=== PATIENT | female | born 1935 | race African-American/Black ===

== ENCOUNTER 2021-08-27 07:58 | Inpatient (IN) | payer OTHER ==
[~2021-08-27] VITALS: Ht 170.2 cm; Wt 65.2 kg
[~2021-08-27 07:58] MED LIST: ALLO100T PO; CALC667C PO; CARV12.544 PO; CLOP75TA70 PO; INSLANTI SC; OME20T PO; SUCR1TAB PO; TEMA30CA PO
[2021-08-27] MEDS ORDERED: FUROSEMIDE 40 MG/4 ML VIAL IV ONE (08:30)
[2021-08-27] MEDS: cloNIDine HCL 0.1 MG TAB PO ONE ×2 (08:57→08:58)
[2021-08-27 09:41] LABS: Basophils # (auto) 0.1 10 ^3/uL (0-0.2); Basophils % (auto) 1.4 % (0.0-2.0); Eosinophils # (auto) 0.1 10 ^3/uL (0-0.8); Eosinophils % (auto) 1.7 % (0.0-7.0); Hematocrit 34.5 % (36.0-46.0); Hemoglobin 11.3 g/dL (12.2-16.2); Lymphocytes # (auto) 1.7 10 ^3/uL (0.4-5.4); Lymphocytes % (auto) 22.8 % (10.0-50.0); Mean Corpuscular Hemoglobin 31.2 pg (28.0-32.0); Mean Corpuscular Hgb Conc. 32.8 g/dL (32.0-36.0); Mean Corpuscular Volume 95.2 fL (80.0-100.0); Monocytes # (auto) 0.7 10 ^3/uL (0-1.3); Monocytes % (auto) 9.6 % (0.0-12.0); Neutrophils # (auto) 4.9 10 ^3/uL (1.6-8.6); Neutrophils % (auto) 64.5 % (37.0-80.0); Red Blood Cells 3.63 10^6/uL (4.0-5.20); Red Cell Distribution Width 14.6 % (11.8-14.3); White Blood Cell 7.6 10^3/uL (4.4-10.8)
[2021-08-27] MEDS: SODIUM CHL 0.9% 1000 ML BAG XX ONE (10:30)
[2021-08-27 11:59] LABS: Alanine Aminotransferase 10 U/L (13-56); Alkaline Phosphatase 161 U/L (45-117); Anion Gap 14 (5-15); Aspartate Aminotransferase 20 U/L (15-37); BUN/Creatinine Ratio 3.1; Blood Urea Nitrogen 32 mg/dL (7-18); Carbon Dioxide 21 mmol/L (21-32); Chloride 99 mmol/L (98-107); GFR African American 5 mL/min; GFR Non-African American 4 mL/min; Glucose 152 mg/dL (74-106); Potassium 4.8 mmol/L (3.5-5.1); Sodium 134 mmol/L (136-145)
[2021-08-27 12:00] LABS: Albumin 3.2 g/dL (3.4-5.0); Bilirubin, Total 0.7 mg/dL (0.2-1.0); Calcium 8.4 mg/dL (8.5-10.1); Total Protein 6.9 g/dL (6.4-8.2)
[2021-08-27] MEDS ORDERED: BUMETANIDE 2.5mg/10ml (0.25 mg/ml) INJ IV ONE (13:00)
[2021-08-27] MEDS ORDERED: NITROGLYCERIN 0.4 MG SL TAB SL PRN (13:00)
[2021-08-27] MEDS ORDERED: MORPHINE SULFATE INJECTION 2 MG/ML SYRG IV PRN (13:00)
[2021-08-27] MEDS ORDERED: ACETAMINOPHEN 325 MG TAB PO PRN (13:45)
[2021-08-27] MEDS ORDERED: LORazepam 0.5 MG TAB PO PRN (13:45)
[2021-08-27] MEDS ORDERED: HYDROcodone-ACET 5/325MG TAB PO PRN (13:45)
[2021-08-27] MEDS ORDERED: FERROUS SULFATE 325mg EC TAB PO ONE (13:45)
[2021-08-27] MEDS ORDERED: DOCUSATE SOD 100 MG CAP PO PRN (13:45)
[2021-08-27] MEDS ORDERED: hydrALAZINE HCL 20 MG/ML VL IV PRN (13:45)
[2021-08-27] MEDS ORDERED: IPRATROPIUM BROM 0.5 MG/2.5ML INH SOL NEB ONE (13:45)
[2021-08-27] MEDS ORDERED: MONTELUKAST SODIUM 10 MG TAB PO ONE (13:45)
[2021-08-27] MEDS ORDERED: LACTULOSE 20Gm/30ML SOLN PO PRN (13:45)
[2021-08-27] MEDS ORDERED: HYDROcodone-ACET 5/325MG TAB PO ONE (13:45)
[2021-08-27] MEDS ORDERED: PANTOPRAZOLE 40 MG/10 ML VIAL INJ IV ONE (13:45)
[2021-08-27] MEDS ORDERED: B-COMPLEX W/ C & FOLIC ACID(NEPHROVITE TAB) PO ONE (13:45)
[2021-08-27] MEDS ORDERED: DEXTROSE (50%) 50ML SYRG IV PRN ×2 (14:00→17:15)
[2021-08-27] MEDS ORDERED: NIFEdipine ER 30 MG TAB PO ONE (14:00)
[2021-08-27] MEDS ORDERED: IPRATROPIUM BROM 0.5 MG/2.5ML INH SOL NEB SCH (14:00)
[2021-08-27] MEDS ORDERED: ACETYLCYSTEINE 10 %(100MG/ML) SOL 4ML NEB SCH (14:00)
[2021-08-27] MEDS ORDERED: CEFEPIME 1GM/ 50ML 50 ML IV ONE (14:00)
[2021-08-27 16:15] VITALS: BP 160/72
[2021-08-27 16:18] LABS: Magnesium 2.1 mg/dL (1.6-2.6); Phosphorus 4.1 mg/dL (2.5-4.90)
[2021-08-27 17:00] VITALS: BP 160/72
[2021-08-27] MEDS: ACCU-CHEK COMFORT CURVE STRIP VI SCH ×2 (17:00→21:44)
[2021-08-27 17:36] LABS: INR 1.05 (0.9-1.15); Partial Thromboplastin Time 27.3 sec (23.6-33.0)
[2021-08-27] MEDS: FERROUS SULFATE 325mg EC TAB PO SCH (17:46)
[2021-08-27] MEDS: CALCIUM ACETATE 667 MG CAP PO SCH (17:46)
[2021-08-27] MEDS: InsuLIN REG 1unit/0.01ml Soln (100units/ml) SC SCH ×2 (17:50→21:44)
[2021-08-27] MEDS ORDERED: FERROUS SULFATE 325mg EC TAB PO SCH (18:00)
[2021-08-27] MEDS: FUROSEMIDE 20 MG/2 ML VIAL IV SCH (18:00)
[2021-08-27] MEDS ORDERED: FUROSEMIDE 40 MG/4 ML VIAL IV SCH (18:00)
[2021-08-27] MEDS ORDERED: IPRATROPIUM BROM 0.5 MG/2.5ML INH SOL NEB PRN (18:00)
[2021-08-27] MEDS ORDERED: BUMETANIDE 2.5mg/10ml (0.25 mg/ml) INJ IV SCH (18:00)
[2021-08-27] MEDS: CARVEDILOL 3.125 MG TAB PO SCH (21:43)
[2021-08-27] MEDS: ATORVASTATIN 20 MG TAB PO SCH (21:44)
[2021-08-27] MEDS: MONTELUKAST SODIUM 10 MG TAB PO SCH (21:44)
[2021-08-27] MEDS: GABAPENTIN 100 MG CAP PO SCH (21:44)
[2021-08-27 22:00] VITALS: BP 137/68
[2021-08-27] MEDS ORDERED: InsuLIN REG 1unit/0.01ml Soln (100units/ml) SC SCH (22:00)
[2021-08-27] MEDS ORDERED: ATORVASTATIN 20 MG TAB PO SCH (22:00)
[2021-08-27] MEDS ORDERED: ACCU-CHEK COMFORT CURVE STRIP VI SCH (22:00)
[2021-08-28 03:20] VITALS: BP 137/68
[2021-08-28 05:00] VITALS: BP 117/45
[2021-08-28] MEDS: GABAPENTIN 100 MG CAP PO SCH ×3 (06:17→23:23)
[2021-08-28] MEDS: FUROSEMIDE 20 MG/2 ML VIAL IV SCH ×2 (06:17→18:36)
[2021-08-28] MEDS: ACCU-CHEK COMFORT CURVE STRIP VI SCH ×4 (06:27→22:11)
[2021-08-28] MEDS: InsuLIN REG 1unit/0.01ml Soln (100units/ml) SC SCH ×4 (06:27→22:00)
[2021-08-28 06:45] LABS: INR 1.1 (0.9-1.15); Partial Thromboplastin Time 29.3 sec (23.6-33.0)
[2021-08-28] MEDS ORDERED: InsuLIN REG 1unit/0.01ml Soln (100units/ml) SC SCH (07:00)
[2021-08-28 07:28] LABS: Uric Acid 4.3 mg/dL (2.6-6.0)
[2021-08-28 07:31] LABS: Phosphorus 3.6 mg/dL (2.5-4.90)
[2021-08-28 07:39] VITALS: BP 122/62
[2021-08-28 07:42] LABS: Thyroid Stimulating Hormone 1.79 uIU/mL (0.358-3.74)
[2021-08-28] MEDS: CALCIUM ACETATE 667 MG CAP PO SCH ×3 (07:56→18:35)
[2021-08-28] MEDS: FERROUS SULFATE 325mg EC TAB PO SCH ×3 (07:56→18:35)
[2021-08-28] MEDS: CLOPIDOGREL BISULFATE 75 MG TAB PO SCH (08:01)
[2021-08-28] MEDS: ALLOPURINOL 100 MG TAB PO SCH (08:01)
[2021-08-28] MEDS: CARVEDILOL 3.125 MG TAB PO SCH ×2 (08:01→23:26)
[2021-08-28] MEDS: B-COMPLEX W/ C & FOLIC ACID(NEPHROVITE TAB) PO SCH (08:02)
[2021-08-28] MEDS: CALCITRIOL 0.25 MCG CAP PO SCH (08:02)
[2021-08-28] MEDS: ENOXAPARIN SOD 30 MG/0.3 ML SYRINGE SC SCH (08:03)
[2021-08-28] MEDS: NIFEdipine ER 30 MG TAB PO SCH (09:37)
[2021-08-28] MEDS: PANTOPRAZOLE 40 MG/10 ML VIAL INJ IV SCH (09:38)
[2021-08-28] MEDS: CEFEPIME 1GM/ 50ML 50 ML IV SCH (10:00)
[2021-08-28] MEDS ORDERED: CHOLECALCIFEROL (VITD3) 2,000 UNIT CAP/TAB PO SCH (10:00)
[2021-08-28 11:49] VITALS: BP 115/51
[2021-08-28 17:00] VITALS: BP 119/61
[2021-08-28 22:13] VITALS: BP 119/53
[2021-08-28] MEDS: MONTELUKAST SODIUM 10 MG TAB PO SCH (23:22)
[2021-08-28] MEDS: ATORVASTATIN 20 MG TAB PO SCH (23:23)
[2021-08-29 05:00] VITALS: BP 136/73
[2021-08-29] MEDS: GABAPENTIN 100 MG CAP PO SCH ×2 (05:43→13:24)
[2021-08-29] MEDS: FUROSEMIDE 20 MG/2 ML VIAL IV SCH ×2 (05:43→17:52)
[2021-08-29] MEDS: ACCU-CHEK COMFORT CURVE STRIP VI SCH ×3 (06:31→17:51)
[2021-08-29] MEDS: InsuLIN REG 1unit/0.01ml Soln (100units/ml) SC SCH ×3 (06:32→17:52)
[2021-08-29] MEDS ORDERED: SODIUM CHL 0.9% 1000 ML BAG XX ONE (07:00)
[2021-08-29 08:06] LABS: Calcium 8.7 mg/dL (8.5-10.1); Potassium 4.4 mmol/L (3.5-5.1)
[2021-08-29 09:00] VITALS: BP 118/53
[2021-08-29] MEDS: CALCIUM ACETATE 667 MG CAP PO SCH ×3 (09:17→17:51)
[2021-08-29] MEDS: FERROUS SULFATE 325mg EC TAB PO SCH ×3 (09:17→17:51)
[2021-08-29] MEDS: CEFEPIME 1GM/ 50ML 50 ML IV SCH (09:17)
[2021-08-29] MEDS: PANTOPRAZOLE 40 MG/10 ML VIAL INJ IV SCH (09:17)
[2021-08-29] MEDS: B-COMPLEX W/ C & FOLIC ACID(NEPHROVITE TAB) PO SCH (09:18)
[2021-08-29] MEDS: CLOPIDOGREL BISULFATE 75 MG TAB PO SCH (09:18)
[2021-08-29] MEDS: CARVEDILOL 3.125 MG TAB PO SCH (09:18)
[2021-08-29] MEDS: ENOXAPARIN SOD 30 MG/0.3 ML SYRINGE SC SCH (09:19)
[2021-08-29] MEDS: ALLOPURINOL 100 MG TAB PO SCH (09:19)
[2021-08-29] MEDS: NIFEdipine ER 30 MG TAB PO SCH (09:19)
[2021-08-29] MEDS: CALCITRIOL 0.25 MCG CAP PO SCH (09:19)
[2021-08-29 13:00] VITALS: BP 140/68
[2021-08-30] MEDS ORDERED: ASPirin 81 mg TAB PO SCH (10:00)
== END 2021-08-29 19:08 | disposition home or self-care (01) | DRG 280 ==
LOC: ER 07:58 → TELE 12:51 → TELE-CENTR 15:57
PROVIDERS: ADMIT Hospitalist; ATTEND Internal Medicine Geriatric Medicine
PROC: 5A1D70Z Performance of Urinary Filtration, Intermittent, Less than 6 Hours Per Day (ICD-10-PCS; principal; 2021-08-27)
PROC: 5A1D70Z Performance of Urinary Filtration, Intermittent, Less than 6 Hours Per Day (ICD-10-PCS; 2021-08-29)
DX: I13.2 Hypertensive heart and chronic kidney disease with heart failure and with stage 5 chronic kidney disease, or end stage renal disease (principal); I21.A1 Myocardial infarction type 2; N18.6 End stage renal disease; I50.23 Acute on chronic systolic (congestive) heart failure; I42.9 Cardiomyopathy, unspecified; E11.22 Type 2 diabetes mellitus with diabetic chronic kidney disease; E78.5 Hyperlipidemia, unspecified; E88.09 Other disorders of plasma-protein metabolism, not elsewhere classified; D63.1 Anemia in chronic kidney disease; Z20.822 Contact with and (suspected) exposure to COVID-19; I25.10 Atherosclerotic heart disease of native coronary artery without angina pectoris; K29.70 Gastritis, unspecified, without bleeding; M1A.9XX0 Chronic gout, unspecified, without tophus (tophi); Z98.61 Coronary angioplasty status; Z79.02 Long term (current) use of antithrombotics/antiplatelets; Z99.2 Dependence on renal dialysis; Z79.899 Other long term (current) drug therapy
CPT/HCPCS: 36415; 71045; 80048; 80053; 80061; 82728; 82962; 83036; 83605; 83615; 83690; 83735; 83970; 84100; 84443; 84484; 84550; 85025; 85379; 85610; 85652; 85730; 87040; 90935; 93005; 93306; 93970; 96374; 99291; C9113; G0378; J1642; J1815

== ENCOUNTER 2021-10-20 15:47 | Inpatient (IN) | payer OTHER ==
[~2021-10-20] VITALS: Ht 162.6 cm; Wt 56.4 kg
[2021-10-20] MEDS ORDERED: SODIUM CHLORIDE 0.9% 1,000 ML IV ONE (16:45)
[2021-10-20 19:06] LABS: Basophils # (auto) 0.1 10 ^3/uL (0-0.2); Basophils % (auto) 0.8 % (0.0-2.0); Eosinophils # (auto) 0 10 ^3/uL (0-0.8); Eosinophils % (auto) 0.2 % (0.0-7.0); Hematocrit 34.7 % (36.0-46.0); Hemoglobin 11.7 g/dL (12.2-16.2); Lymphocytes # (auto) 1.9 10 ^3/uL (0.4-5.4); Lymphocytes % (auto) 24.7 % (10.0-50.0); Mean Corpuscular Hemoglobin 31.6 pg (28.0-32.0); Mean Corpuscular Hgb Conc. 33.7 g/dL (32.0-36.0); Mean Corpuscular Volume 93.7 fL (80.0-100.0); Monocytes # (auto) 0.6 10 ^3/uL (0-1.3); Monocytes % (auto) 8.1 % (0.0-12.0); Neutrophils # (auto) 5.1 10 ^3/uL (1.6-8.6); Neutrophils % (auto) 66.2 % (37.0-80.0); Nucleated Red Blood Cells % 0.1 %; Red Blood Cells 3.71 10^6/uL (4.0-5.20); Red Cell Distribution Width 14.7 % (11.8-14.3); White Blood Cell 7.7 10^3/uL (4.4-10.8)
[2021-10-20 19:17] LABS: INR 1.01 (0.9-1.15); Partial Thromboplastin Time 28.7 sec (23.6-33.0)
[2021-10-20 19:26] LABS: Albumin 2.8 g/dL (3.4-5.0); Calcium 8.9 mg/dL (8.5-10.1)
[2021-10-20 19:29] LABS: BUN/Creatinine Ratio 3.4
[2021-10-20] MEDS ORDERED: ENOXAPARIN SOD 60 MG/0.6 ML SYRINGE SC ONE (19:30)
[2021-10-20] MEDS ORDERED: ASPirin-EC 325mg tab PO ONE (19:30)
[2021-10-20 19:38] LABS: Potassium 5.7 mmol/L (3.5-5.1)
[2021-10-20 19:42] LABS: Bilirubin, Total 0.4 mg/dL (0.2-1.0); Total Protein 7.3 g/dL (6.4-8.2)
[2021-10-20] MEDS ORDERED: CALCIUM GLUC 1,000mg/50ml-NS 50 ML IV ONE (20:15)
[2021-10-20] MEDS ORDERED: DEXTROSE (50%) 50ML SYRG IV ONE (20:15)
[2021-10-20] MEDS ORDERED: SODIUM BICARBONATE 8.4 % INJ 50ML VIAL IV ONE (20:15)
[2021-10-20] MEDS ORDERED: InsuLIN REG 1unit/0.01ml Soln (100units/ml) IV ONE (20:15)
[2021-10-20] MEDS ORDERED: SODIUM ZIRCONIUM CYCL 10 GM PAK PO ONE (21:00)
[2021-10-20] MEDS ORDERED: ONDANSETRON HCL 4 MG/2 ML VIAL IV PRN (21:45)
[2021-10-20] MEDS ORDERED: DOCUSATE SOD 100 MG CAP PO PRN (21:45)
[2021-10-20] MEDS ORDERED: DEXTROSE (50%) 50ML SYRG IV PRN (21:45)
[2021-10-20] MEDS ORDERED: HYDROcodone-ACET 5/325MG TAB PO PRN (21:45)
[2021-10-20] MEDS: HEPARIN SODIUM (PORCINE) 5000 UNITS/ML 1ML VIAL SC SCH (22:00)
[2021-10-20] MEDS: SODIUM CHLOR 0.9% PF (SALINE LOCK) 10ML VIAL/SYR IV SCH (22:00)
[2021-10-20] MEDS: CARVEDILOL 3.125 MG TAB PO SCH (22:00)
[2021-10-20] MEDS: InsuLIN REG 1unit/0.01ml Soln (100units/ml) SC SCH (22:00)
[2021-10-20] MEDS: ACCU-CHEK COMFORT CURVE STRIP VI SCH (22:09)
[2021-10-20] MEDS ORDERED: NITROGLYCERIN 0.4 MG SL TAB SL PRN (22:15)
[2021-10-20] MEDS ORDERED: MORPHINE SULFATE INJ 2 MG/ml SYRG IV PRN (22:15)
[2021-10-21] VITALS (7 sets, daily range): BP systolic 106–139; BP diastolic 50–85
[2021-10-21] MEDS: FAMOTIDINE (10MG/ML) 2ML VL IV SCH ×2 (01:16→23:12)
[2021-10-21] MEDS: SODIUM CHLOR 0.9% PF (SALINE LOCK) 10ML VIAL/SYR IV SCH ×3 (06:17→22:42)
[2021-10-21] MEDS: InsuLIN REG 1unit/0.01ml Soln (100units/ml) SC SCH ×4 (06:17→22:00)
[2021-10-21] MEDS: ACCU-CHEK COMFORT CURVE STRIP VI SCH ×4 (06:17→22:43)
[2021-10-21] MEDS: SEVELAMER 800 MG TAB PO SCH ×3 (08:00→18:00)
[2021-10-21] MEDS: CARVEDILOL 3.125 MG TAB PO SCH ×2 (11:46→11:56)
[2021-10-21] MEDS: B-COMPLEX W/ C & FOLIC ACID(NEPHROVITE TAB) PO SCH (11:46)
[2021-10-21] MEDS: HEPARIN SODIUM (PORCINE) 5000 UNITS/ML 1ML VIAL SC SCH ×2 (11:47→22:48)
[2021-10-21 13:57] LABS: Basophils # (auto) 0.1 10 ^3/uL (0-0.2); Basophils % (auto) 1.5 % (0.0-2.0); Eosinophils # (auto) 0.1 10 ^3/uL (0-0.8); Eosinophils % (auto) 1.1 % (0.0-7.0); Hemoglobin 12.4 g/dL (12.2-16.2); Lymphocytes # (auto) 2.5 10 ^3/uL (0.4-5.4); Lymphocytes % (auto) 26.4 % (10.0-50.0); Mean Corpuscular Hemoglobin 31.1 pg (28.0-32.0); Mean Corpuscular Hgb Conc. 33.4 g/dL (32.0-36.0); Mean Corpuscular Volume 93.3 fL (80.0-100.0); Monocytes # (auto) 0.9 10 ^3/uL (0-1.3); Monocytes % (auto) 9.7 % (0.0-12.0); Neutrophils # (auto) 5.8 10 ^3/uL (1.6-8.6); Neutrophils % (auto) 61.3 % (37.0-80.0); Red Blood Cells 3.97 10^6/uL (4.0-5.20); White Blood Cell 9.6 10^3/uL (4.4-10.8)
[2021-10-21 14:02] LABS: Albumin 2.9 g/dL (3.4-5.0); BUN/Creatinine Ratio 3.8; Potassium 4.4 mmol/L (3.5-5.1)
[2021-10-21 14:05] LABS: Bilirubin, Total 0.4 mg/dL (0.2-1.0); Total Protein 7.5 g/dL (6.4-8.2)
[2021-10-21 18:50] LABS: Alcohol, Urine < 3.0 mg/dL (0-10); Amphetamine Screen, Urine NEGATIVE (NEGATIVE); Barbiturate Scree,Urine NEGATIVE (NEGATIVE); Benzodiazephine Screen, Urine NEGATIVE (NEGATIVE); Cannabinoid Screen, Urine NEGATIVE (NEGATIVE); Cocaine Screen, Urine NEGATIVE (NEGATIVE); Opiate Scree,Urine NEGATIVE (NEGATIVE); Phencyclidine Screen, Urine NEGATIVE (NEGATIVE)
[2021-10-22 05:00] VITALS: BP 133/59
[2021-10-22] MEDS: ACCU-CHEK COMFORT CURVE STRIP VI SCH ×4 (06:36→22:32)
[2021-10-22] MEDS: InsuLIN REG 1unit/0.01ml Soln (100units/ml) SC SCH ×4 (06:37→22:47)
[2021-10-22] MEDS: SODIUM CHLOR 0.9% PF (SALINE LOCK) 10ML VIAL/SYR IV SCH ×3 (06:39→22:31)
[2021-10-22] MEDS ORDERED: SODIUM CHL 0.9% 1000 ML BAG XX ONE (07:00)
[2021-10-22] MEDS: SEVELAMER 800 MG TAB PO SCH ×3 (08:00→18:00)
[2021-10-22 09:00] VITALS: BP 139/75
[2021-10-22] MEDS: CARVEDILOL 3.125 MG TAB PO SCH ×2 (10:00→22:31)
[2021-10-22 10:13] LABS: BUN/Creatinine Ratio 3.7; Calcium 8.7 mg/dL (8.5-10.1); Potassium 3.8 mmol/L (3.5-5.1)
[2021-10-22] MEDS: B-COMPLEX W/ C & FOLIC ACID(NEPHROVITE TAB) PO SCH (10:30)
[2021-10-22] MEDS: HEPARIN SODIUM (PORCINE) 5000 UNITS/ML 1ML VIAL SC SCH ×2 (10:39→22:24)
[2021-10-22 13:00] VITALS: BP 101/54
[2021-10-22 17:00] VITALS: BP 130/70
[2021-10-22] MEDS ORDERED: guaiFENesin-DM 100/10mg/5ml SYR PO PRN (19:45)
[2021-10-22 21:47] VITALS: BP 104/94
[2021-10-22] MEDS: FAMOTIDINE (10MG/ML) 2ML VL IV SCH (22:20)
[2021-10-23] MEDS: ACETAMINOPHEN 325 MG TAB PO PRN ×2 (02:18→10:59)
[2021-10-23 05:03] VITALS: BP 101/59
[2021-10-23] MEDS: ACCU-CHEK COMFORT CURVE STRIP VI SCH ×3 (06:19→17:00)
[2021-10-23] MEDS: InsuLIN REG 1unit/0.01ml Soln (100units/ml) SC SCH ×3 (06:19→17:00)
[2021-10-23] MEDS: SODIUM CHLOR 0.9% PF (SALINE LOCK) 10ML VIAL/SYR IV SCH ×2 (06:19→14:00)
[2021-10-23 06:41] LABS: BUN/Creatinine Ratio 3.9; Calcium 9.4 mg/dL (8.5-10.1); Potassium 4.3 mmol/L (3.5-5.1)
[2021-10-23] MEDS: SEVELAMER 800 MG TAB PO SCH ×2 (10:49→17:47)
[2021-10-23] MEDS: B-COMPLEX W/ C & FOLIC ACID(NEPHROVITE TAB) PO SCH (10:49)
[2021-10-23] MEDS: CARVEDILOL 3.125 MG TAB PO SCH (10:50)
[2021-10-23] MEDS: HEPARIN SODIUM (PORCINE) 5000 UNITS/ML 1ML VIAL SC SCH (11:04)
[2021-10-23] MEDS ORDERED: DEXT1SYP9 PO (12:55)
[2021-10-23] MEDS ORDERED: PANT40T PO (12:55)
[2021-10-23 16:01] VITALS: BP 104/53
[2021-10-24] MEDS ORDERED: SODIUM CHL 0.9% 1000 ML BAG XX ONE (07:00)
[2021-10-24] MEDS ORDERED: PANTOPRAZOLE 40 MG TAB PO SCH (10:00)
== END 2021-10-23 17:20 | disposition home health service (06) | DRG 291 ==
LOC: EDBD 15:47 → ER 15:47 → CENTRAL 22:04 → TELE-CENTR 10-21 00:50
PROVIDERS: ADMIT Nurse Practitioner Family; ATTEND Internal Medicine Geriatric Medicine
PROC: 5A1D70Z Performance of Urinary Filtration, Intermittent, Less than 6 Hours Per Day (ICD-10-PCS; principal; 2021-10-22)
DX: I13.2 Hypertensive heart and chronic kidney disease with heart failure and with stage 5 chronic kidney disease, or end stage renal disease (principal); G93.41 Metabolic encephalopathy; N18.6 End stage renal disease; I50.23 Acute on chronic systolic (congestive) heart failure; E87.5 Hyperkalemia; E11.65 Type 2 diabetes mellitus with hyperglycemia; E11.22 Type 2 diabetes mellitus with diabetic chronic kidney disease; D63.1 Anemia in chronic kidney disease; E88.09 Other disorders of plasma-protein metabolism, not elsewhere classified; I25.10 Atherosclerotic heart disease of native coronary artery without angina pectoris; Z99.2 Dependence on renal dialysis; Z20.822 Contact with and (suspected) exposure to COVID-19
CPT/HCPCS: 36415; 70450; 71045; 80048; 80053; 80307; 82962; 83036; 83880; 84484; 85025; 85610; 85730; 87340; 93005; 96365; 96375; 97163; 99291; G0378; J1815; J3490

== ENCOUNTER 2022-08-25 21:39 | Emergency (ER) | payer OTHER ==
[~2022-08-25] VITALS: Ht 167.6 cm; Wt 52.0 kg
[~2022-08-25 21:39] MED LIST changes: +DEXT1SYP9 PO; +PANT40T PO
[2022-08-25 22:28] LABS: Basophils # (auto) 0.1 10 ^3/uL (0-0.2); Basophils % (auto) 1.2 % (0.0-2.0); Eosinophils # (auto) 0.2 10 ^3/uL (0-0.8); Eosinophils % (auto) 2.5 % (0.0-7.0); Hematocrit 41.3 % (36.0-46.0); Hemoglobin 13.6 g/dL (12.2-16.2); Lymphocytes # (auto) 1.8 10 ^3/uL (0.4-5.4); Lymphocytes % (auto) 30.4 % (10.0-50.0); Mean Corpuscular Hemoglobin 29.8 pg (28.0-32.0); Mean Corpuscular Hgb Conc. 33.1 g/dL (32.0-36.0); Mean Corpuscular Volume 90.2 fL (80.0-100.0); Monocytes # (auto) 0.7 10 ^3/uL (0-1.3); Monocytes % (auto) 11.6 % (0.0-12.0); Neutrophils # (auto) 3.2 10 ^3/uL (1.6-8.6); Neutrophils % (auto) 54.3 % (37.0-80.0); Nucleated Red Blood Cells % 0.1 %; Red Blood Cells 4.57 10^6/uL (4.0-5.20); Red Cell Distribution Width 17.6 % (11.8-14.3)
[2022-08-25 22:48] LABS: Albumin 3.1 g/dL (3.4-5.0); Calcium 8.2 mg/dL (8.5-10.1); Magnesium 2.6 mg/dL (1.6-2.6); Potassium 4.8 mmol/L (3.5-5.1)
[2022-08-25 23:08] LABS: Bilirubin, Total 0.4 mg/dL (0.2-1.0)
[2022-08-26 06:00] VITALS: BP 124/63
== END 2022-08-26 06:05 | disposition home or self-care (01) ==
LOC: ER 21:39 → EDBD 21:39 → ER 08-26 06:05
DX: E11.22 Type 2 diabetes mellitus with diabetic chronic kidney disease (principal); I13.2 Hypertensive heart and chronic kidney disease with heart failure and with stage 5 chronic kidney disease, or end stage renal disease; N18.6 End stage renal disease; I50.89 Other heart failure; R18.8 Other ascites; J90 Pleural effusion, not elsewhere classified; R06.02 Shortness of breath; E83.51 Hypocalcemia; E88.09 Other disorders of plasma-protein metabolism, not elsewhere classified
CPT/HCPCS: 36415; 71045; 74176; 80053; 83690; 83735; 84484; 85025; 93005

== ENCOUNTER 2022-09-25 22:33 | Inpatient (IN) | payer OTHER ==
[~2022-09-25] VITALS: Ht 165.1 cm; Wt 57.7 kg
[2022-09-25 23:20] LABS: Basophils # (auto) 0.1 10 ^3/uL (0-0.2); Basophils % (auto) 0.9 % (0.0-2.0); Eosinophils # (auto) 0.2 10 ^3/uL (0-0.8); Eosinophils % (auto) 2.7 % (0.0-7.0); Hematocrit 41.1 % (36.0-46.0); Hemoglobin 13.2 g/dL (12.2-16.2); Lymphocytes % (auto) 31.1 % (10.0-50.0); Mean Corpuscular Hemoglobin 28.9 pg (28.0-32.0); Mean Corpuscular Hgb Conc. 32.1 g/dL (32.0-36.0); Monocytes # (auto) 0.8 10 ^3/uL (0-1.3); Monocytes % (auto) 12.7 % (0.0-12.0); Neutrophils # (auto) 3.4 10 ^3/uL (1.6-8.6); Neutrophils % (auto) 52.6 % (37.0-80.0); Nucleated Red Blood Cells % 0.2 %; Red Blood Cells 4.57 10^6/uL (4.0-5.20); Red Cell Distribution Width 17.6 % (11.8-14.3); White Blood Cell 6.4 10^3/uL (4.4-10.8)
[2022-09-26] MEDS ORDERED: CALCIUM GLUC 1,000mg/50ml-NS 50 ML IV ONE (00:15)
[2022-09-26] MEDS ORDERED: SODIUM BICARBONATE 8.4% INJ 50ML SYRINGE IV ONE (00:15)
[2022-09-26 00:29] LABS: BUN/Creatinine Ratio 4.4 (10.0-20.0); Calcium 9.5 mg/dL (8.5-10.1)
[2022-09-26 00:32] LABS: Bilirubin, Total 0.6 mg/dL (0.2-1.0); Total Protein 6.9 g/dL (6.4-8.2)
[2022-09-26] MEDS ORDERED: FUROSEMIDE 20 MG/2 ML VIAL IV ONE (01:15)
[2022-09-26] MEDS ORDERED: MORPHINE SULFATE INJ 2 MG/ml SYRG IV PRN (03:00)
[2022-09-26] MEDS ORDERED: NITROGLYCERIN 0.4 MG SL TAB SL PRN (03:00)
[2022-09-26] MEDS ORDERED: DEXTROSE (50%) 50ML SYRG IV PRN (03:00)
[2022-09-26] MEDS ORDERED: ACETAMINOPHEN 325 MG TAB PO PRN (03:00)
[2022-09-26] MEDS: ONDANSETRON HCL 4 MG/2 ML VIAL IV PRN ×2 (06:25→13:51)
[2022-09-26] MEDS: ACCU-CHEK COMFORT CURVE STRIP VI SCH ×4 (06:26→22:26)
[2022-09-26] MEDS: InsuLIN REG 1unit/0.01ml Soln (100units/ml) SC SCH ×4 (06:26→22:32)
[2022-09-26] MEDS: CLOPIDOGREL BISULFATE 75 MG TAB PO SCH (10:01)
[2022-09-26] MEDS: ASPirin 81 mg TAB PO SCH (10:02)
[2022-09-26] MEDS: VALSARTAN 80 MG TAB PO SCH (10:03)
[2022-09-26] MEDS: CARVEDILOL 3.125 MG TAB PO SCH ×2 (10:03→22:24)
[2022-09-26] MEDS: APIXABAN 5 MG TAB PO SCH ×2 (10:07→22:23)
[2022-09-26 22:07] VITALS: BP 129/81
[2022-09-26] MEDS ORDERED: ALBUTEROL SULF 2.5 MG/0.5ML(0.5%) NEB SOLN ONE (22:26)
[2022-09-26] MEDS: ALBUTEROL SULF 2.5 MG/0.5ML(0.5%) NEB SOLN NEB PRN (22:44)
[2022-09-27 01:26] VITALS: BP 124/50
[2022-09-27 05:47] VITALS: BP 151/67
[2022-09-27] MEDS: InsuLIN REG 1unit/0.01ml Soln (100units/ml) SC SCH ×4 (06:30→22:05)
[2022-09-27] MEDS: ACCU-CHEK COMFORT CURVE STRIP VI SCH ×4 (06:30→21:52)
[2022-09-27 06:33] LABS: Basophils # (auto) 0.1 10 ^3/uL (0-0.2); Basophils % (auto) 1.4 % (0.0-2.0); Eosinophils # (auto) 0.2 10 ^3/uL (0-0.8); Eosinophils % (auto) 2.8 % (0.0-7.0); Hematocrit 39.8 % (36.0-46.0); Hemoglobin 13.1 g/dL (12.2-16.2); Lymphocytes % (auto) 30.9 % (10.0-50.0); Mean Corpuscular Hemoglobin 29.1 pg (28.0-32.0); Mean Corpuscular Volume 88.2 fL (80.0-100.0); Monocytes # (auto) 0.9 10 ^3/uL (0-1.3); Monocytes % (auto) 14.1 % (0.0-12.0); Neutrophils # (auto) 3.3 10 ^3/uL (1.6-8.6); Neutrophils % (auto) 50.8 % (37.0-80.0); Nucleated Red Blood Cells % 0.2 %; Red Blood Cells 4.51 10^6/uL (4.0-5.20); Red Cell Distribution Width 17.4 % (11.8-14.3); White Blood Cell 6.5 10^3/uL (4.4-10.8)
[2022-09-27 06:43] LABS: Albumin 2.7 g/dL (3.4-5.0); Anion Gap 10 (5-15); Blood Urea Nitrogen 39 mg/dL (7-18); Calcium 8.9 mg/dL (8.5-10.1); Carbon Dioxide 24 mmol/L (21-32); Chloride 101 mmol/L (98-107); GFR African American 6 mL/min; GFR Non-African American 5 mL/min; Glucose 79 mg/dL (74-106); Potassium 5.1 mmol/L (3.5-5.1); Sodium 135 mmol/L (136-145)
[2022-09-27 06:47] LABS: Alanine Aminotransferase 14 U/L (13-56); Alkaline Phosphatase 94 U/L (45-117); Aspartate Aminotransferase 14 U/L (15-37); Bilirubin, Total 0.6 mg/dL (0.2-1.0); Total Protein 6.4 g/dL (6.4-8.2)
[2022-09-27] MEDS ORDERED: SODIUM CHL 0.9% 1000 ML BAG XX ONE (07:00)
[2022-09-27 09:00] VITALS: BP 110/52
[2022-09-27] MEDS: APIXABAN 5 MG TAB PO SCH ×3 (10:00→21:52)
[2022-09-27] MEDS: CLOPIDOGREL BISULFATE 75 MG TAB PO SCH ×3 (10:00→17:56)
[2022-09-27] MEDS: ALBUTEROL SULF 2.5 MG/0.5ML(0.5%) NEB SOLN NEB PRN ×3 (11:06→22:20)
[2022-09-27] MEDS: HYDROcodone-ACET 5/325MG TAB PO PRN (11:45)
[2022-09-27 13:00] VITALS: BP 122/46
[2022-09-27 17:00] VITALS: BP 132/70
[2022-09-27] MEDS: CARVEDILOL 3.125 MG TAB PO SCH ×2 (17:15→22:00)
[2022-09-27] MEDS: ASPirin 81 mg TAB PO SCH ×2 (17:49→17:56)
[2022-09-27] MEDS: VALSARTAN 80 MG TAB PO SCH ×2 (17:50→17:56)
[2022-09-27] MEDS ORDERED: guaiFENesin-DM 100/10mg/5ml SYR PO PRN (21:30)
[2022-09-27 22:00] VITALS: BP 113/50
[2022-09-28 05:00] VITALS: BP 106/71
[2022-09-28] MEDS: InsuLIN REG 1unit/0.01ml Soln (100units/ml) SC SCH ×4 (06:21→22:00)
[2022-09-28] MEDS: ACCU-CHEK COMFORT CURVE STRIP VI SCH ×4 (06:21→22:22)
[2022-09-28] MEDS: ALBUTEROL SULF 2.5 MG/0.5ML(0.5%) NEB SOLN NEB PRN (08:40)
[2022-09-28 09:00] VITALS: BP 134/61
[2022-09-28] MEDS: ASPirin 81 mg TAB PO SCH (12:18)
[2022-09-28] MEDS: APIXABAN 5 MG TAB PO SCH ×2 (12:19→22:22)
[2022-09-28] MEDS: CLOPIDOGREL BISULFATE 75 MG TAB PO SCH (12:19)
[2022-09-28] MEDS: CARVEDILOL 3.125 MG TAB PO SCH ×2 (12:19→22:22)
[2022-09-28] MEDS: VALSARTAN 80 MG TAB PO SCH (12:19)
[2022-09-28 13:00] VITALS: BP 150/85
[2022-09-28 17:00] VITALS: BP 106/52
[2022-09-28 22:00] VITALS: BP 129/68
[2022-09-29] MEDS: ALBUTEROL SULF 2.5 MG/0.5ML(0.5%) NEB SOLN NEB PRN ×3 (04:28→15:00)
[2022-09-29 05:17] VITALS: BP 121/69
[2022-09-29] MEDS: SUCRALFATE 1 GM/10 ML ORAL SUSP PO SCH ×4 (06:16→21:48)
[2022-09-29] MEDS: ACCU-CHEK COMFORT CURVE STRIP VI SCH ×4 (07:00→21:49)
[2022-09-29] MEDS: InsuLIN REG 1unit/0.01ml Soln (100units/ml) SC SCH ×4 (07:00→21:58)
[2022-09-29 09:00] VITALS: BP 118/72
[2022-09-29] MEDS: CLOPIDOGREL BISULFATE 75 MG TAB PO SCH (09:59)
[2022-09-29] MEDS: APIXABAN 5 MG TAB PO SCH ×2 (09:59→21:48)
[2022-09-29] MEDS: ASPirin 81 mg TAB PO SCH (09:59)
[2022-09-29] MEDS ORDERED: PANTOPRAZOLE 40 MG TAB PO SCH (10:00)
[2022-09-29] MEDS: CARVEDILOL 3.125 MG TAB PO SCH ×2 (10:11→21:49)
[2022-09-29] MEDS: PANTOPRAZOLE 40 MG TAB PO SCH ×2 (10:13→21:48)
[2022-09-29] MEDS: VALSARTAN 80 MG TAB PO SCH (11:28)
[2022-09-29 13:00] VITALS: BP 119/63
[2022-09-29] MEDS: HYDROcodone-ACET 5/325MG TAB PO PRN (15:47)
[2022-09-29 17:00] VITALS: BP 130/64
[2022-09-29 22:04] VITALS: BP 131/75
[2022-09-30 00:38] VITALS: BP 129/69
[2022-09-30 04:51] VITALS: BP 127/70
[2022-09-30] MEDS: SUCRALFATE 1 GM/10 ML ORAL SUSP PO SCH ×2 (06:37→06:40)
[2022-09-30] MEDS: InsuLIN REG 1unit/0.01ml Soln (100units/ml) SC SCH ×2 (06:37→11:20)
[2022-09-30] MEDS: ACCU-CHEK COMFORT CURVE STRIP VI SCH ×2 (06:37→11:20)
[2022-09-30 06:40] LABS: Basophils # (auto) 0 10 ^3/uL (0-0.2); Basophils % (auto) 0.8 % (0.0-2.0); Eosinophils # (auto) 0.2 10 ^3/uL (0-0.8); Eosinophils % (auto) 4.3 % (0.0-7.0); Hematocrit 36.2 % (36.0-46.0); Hemoglobin 11.9 g/dL (12.2-16.2); Lymphocytes # (auto) 1.7 10 ^3/uL (0.4-5.4); Lymphocytes % (auto) 29.8 % (10.0-50.0); Mean Corpuscular Hemoglobin 29.7 pg (28.0-32.0); Monocytes # (auto) 0.9 10 ^3/uL (0-1.3); Monocytes % (auto) 16.1 % (0.0-12.0); Neutrophils # (auto) 2.8 10 ^3/uL (1.6-8.6); Nucleated Red Blood Cells % 0.3 %; Red Blood Cells 4.02 10^6/uL (4.0-5.20); Red Cell Distribution Width 17.7 % (11.8-14.3); White Blood Cell 5.8 10^3/uL (4.4-10.8)
[2022-09-30 06:46] LABS: INR 1.26 (0.9-1.15); Partial Thromboplastin Time 32.9 sec (24.6-33.4)
[2022-09-30 06:53] LABS: Calcium 8.4 mg/dL (8.5-10.1)
[2022-09-30 06:57] LABS: BUN/Creatinine Ratio 4.9 (10.0-20.0); Bilirubin, Total 0.5 mg/dL (0.2-1.0)
[2022-09-30] MEDS ORDERED: MIDAZOLAM HCL 5 MG/ML-1ML VIAL ONE (07:37)
[2022-09-30] MEDS ORDERED: diphenhdrAMINE HCL 50 MG/1 ML VL ONE (07:37)
[2022-09-30] MEDS ORDERED: fentaNYL CITRATE 100 MCG/2 ML VL ONE (07:37)
[2022-09-30 08:00] VITALS: BP 133/74
[2022-09-30] MEDS: CLOPIDOGREL BISULFATE 75 MG TAB PO SCH (10:31)
[2022-09-30] MEDS: VALSARTAN 80 MG TAB PO SCH (10:32)
[2022-09-30] MEDS: APIXABAN 5 MG TAB PO SCH (10:34)
[2022-09-30] MEDS: ASPirin 81 mg TAB PO SCH (10:34)
[2022-09-30] MEDS: CARVEDILOL 3.125 MG TAB PO SCH (10:34)
[2022-09-30] MEDS: PANTOPRAZOLE 40 MG TAB PO SCH (10:34)
[2022-09-30 12:00] VITALS: BP 139/59
[2022-09-30 12:12] VITALS: BP 129/59
== END 2022-09-30 14:04 | disposition home or self-care (01) | DRG 291 ==
LOC: ER 22:33 → EDBD 22:33 → TELE 09-26 02:56 → TELE-CENTR 09-26 21:19
PROVIDERS: ADMIT Nurse Practitioner; ATTEND Internal Medicine Geriatric Medicine
PROC: 5A1D70Z Performance of Urinary Filtration, Intermittent, Less than 6 Hours Per Day (ICD-10-PCS; principal; 2022-09-27)
DX: I13.2 Hypertensive heart and chronic kidney disease with heart failure and with stage 5 chronic kidney disease, or end stage renal disease (principal); I50.23 Acute on chronic systolic (congestive) heart failure; N18.6 End stage renal disease; I25.110 Atherosclerotic heart disease of native coronary artery with unstable angina pectoris; I25.5 Ischemic cardiomyopathy; D63.1 Anemia in chronic kidney disease; E11.22 Type 2 diabetes mellitus with diabetic chronic kidney disease; I45.10 Unspecified right bundle-branch block; I50.84 End stage heart failure; M89.8X9 Other specified disorders of bone, unspecified site; Z53.9 Procedure and treatment not carried out, unspecified reason; Z95.5 Presence of coronary angioplasty implant and graft; Z99.2 Dependence on renal dialysis
CPT/HCPCS: 36415; 71045; 80053; 82962; 83880; 84484; 85018; 85025; 85610; 85730; 86850; 86900; 86901; 87081; 90935; 93005; 93306; 94640; 96365; 96375; 96376; G0378; J1815; J2250; J2405